=== PATIENT | female | born 1955 | race Caucasian/White ===

== ENCOUNTER → 2018-04-03 03:06 | Outpatient (CLI) | payer BC, SELFPAY ==
[2018-04-03 08:27] LABS: Anion Gap 5.9 mmol/L (3-11); BUN 14 mg/dL (7-18); CO2 29.1 mmol/L (21.0-32.0); CREATININE 0.83 mg/dL (0.55-1.02); Calcium 8.8 mg/dL (8.5-10.1); Chloride 106 mmol/L (98-107); Glucose 103 mg/dL (70-100); Potassium 4.1 mmol/L (3.5-5.1); Sodium 141 mmol/L (136-145); TSH 2.33 uIU/mL (0.358-3.74)
[2018-04-06 12:04] LABS: HBs Antibody, Quant 301.3 mIU/mL; Hepatitis B Surface Ab Positive
== END ==
PROVIDERS: PCP Family Medicine; Visit Provider Family Medicine
DX: R73.01 Impaired fasting glucose (principal); R53.83 Other fatigue; Z28.3 Underimmunization status
CPT/HCPCS: 36415; 80048; 86706; 84443

== ENCOUNTER 2018-12-18 08:49 | Outpatient (CLI) | payer BC, SELFPAY ==
[2018-12-18 10:17] LABS: Anion Gap 8.5 mmol/L (3-11); BUN 22 mg/dL (7-18); CO2 28.5 mmol/L (21.0-32.0); CREATININE 0.74 mg/dL (0.55-1.02); Calcium 8.9 mg/dL (8.5-10.1); Chloride 105 mmol/L (98-107); Glucose 106 mg/dL (70-100); Potassium 4.5 mmol/L (3.5-5.1); Sodium 142 mmol/L (136-145)
== END 2018-12-18 09:09 ==
PROVIDERS: PCP Family Medicine; Visit Provider Family Medicine
DX: R73.9 Hyperglycemia, unspecified (principal)
CPT/HCPCS: 36415; 80048

== ENCOUNTER → 2019-04-23 11:18 | Outpatient (CLI) | payer BC, SELFPAY ==
--- NOTE | 2019-04-23 11:33 | DI.RAD_ITS ---
SYMPTOM/DIAGNOSIS: RT HEEL PAIN, CONCERNED ABOUT SPUR. PLANTAR FASCIITIS RT FOOT , PLANTAR FASCIAL FIBROMATOSIS M72.2 RIGHT FOOT: No plantar calcaneal spur is seen. There is no abnormal calcification in the plantar fascia. No bony erosions are seen. There are minimal degenerative changes of the first MTP joint. There is a small accessory navicular. An ossicle is seen posterior to the talus. IMPRESSION: No evidence of heel spur. Minimal first MTP joint degenerative changes.
== END ==
PROVIDERS: PCP Family Medicine; Visit Provider Nurse Practitioner Family
DX: M72.2 Plantar fascial fibromatosis (principal); M79.671 Pain in right foot; M19.071 Primary osteoarthritis, right ankle and foot
CPT/HCPCS: 73630

== ENCOUNTER 2019-10-19 00:27 | Outpatient (CLI) | payer BC, SELFPAY ==
--- NOTE | 2019-10-19 06:15 | DI.US_ITS ---
EXAM: US SOFT TISSUE HEAD OR NECK CLINICAL HISTORY: posterior neck, soft tissue lump, more tender recently, R22.9. TECHNIQUE: Ultrasound was performed using standard protocol. COMPARISON: No exams were available for comparison FINDINGS: Sonographic assessment utilizing grayscale and color Doppler imaging was performed and targeted to th e area of clinical concern. Two ovoid hypoechoic sonographically benign appearing lymph nodes are seen the posterior lateral left neck. These correspond to the area of palpable concern. They each measure 0.7 cm in maximum diamet er. No suspicious cystic or solid masses are seen sonographically. IMPRESSION: There are 2 benign-appearing lymph nodes seen in the posterior lateral left neck. No suspicious cysti c or solid masses are seen sonographically. DATA REPOSITORY:
== END 2019-10-19 00:47 ==
PROVIDERS: PCP Family Medicine
DX: R22.1 Localized swelling, mass and lump, neck (principal); R59.0 Localized enlarged lymph nodes
CPT/HCPCS: 76536

== ENCOUNTER 2020-02-11 08:07 | Outpatient (CLI) | payer BC, SELFPAY ==
[2020-02-16 21:58] LABS: SARS-CoV-2 RNA Undetected (Undetected); SARS-CoV-2 Specimen Source Nasopharynx
== END 2020-02-11 08:27 ==
DX: R50.9 Fever, unspecified (principal)
CPT/HCPCS: U0003

== ENCOUNTER 2020-04-10 07:49 | Outpatient (CLI) | payer BC, SELFPAY ==
--- NOTE | 2020-04-10 11:08 | DI.RAD_ITS ---
EXAM: XR KNEE LT 3V AP,LAT,JANEL CLINICAL HISTORY: left knee pain, post. lateral - post fall 5 weeks, M25.562 PAIN LT KNEE. TECHNIQUE: 2D digital imaging was performed. COMPARISON: CR CHEST 2 VIEWS PA,LAT from 09/13/2013 FINDINGS: BONES: No acute fracture is present. No bony destructive lesion is seen. JOINTS: The knee is normally aligned. No joint effusion is seen. SOFT TISSUE: Normal. IMPRESSION: Normal radiographs of the left knee. DATA REPOSITORY: RADIATION DOSE DELIVERED:
== END 2020-04-10 08:09 ==
DX: M25.562 Pain in left knee (principal)
CPT/HCPCS: 73562

== ENCOUNTER 2020-05-17 00:53 | Outpatient (CLI) | payer MEDICARE, BC, SELFPAY ==
--- NOTE | 2020-05-17 07:30 | DI.MRI_ITS ---
EXAM: MR LOWER JOINT LT WO CLINICAL HISTORY: L KNEE PAIN,INTERNAL DERANGEMENT,M23.92. TECHNIQUE: Multiplanar multisequence MRI was performed. COMPARISON: No exams were available for comparison FINDINGS: MR examination knee was according to usual protocol. Bones: There is mildly increased signal at the ACL attachment intercondylar eminence of the tibia wit h associated abnormal signal ACL attachment, possible minimal cortical disruption at this site sugges ting a partially avulse to ACL attachment. Extensor mechanism patellofemoral joint: Normal appearance of quadriceps and patellar tendons. Huong l signal in suprapatellar and infrapatellar fat pads. Patellar and trochlear articular cartilage demetiro ears fairly well maintained. No retinacular tear. Medial tibiofemoral joint: Fairly symmetrical thinning of femoral and tibial articular cartilage. Ap parent nondisplaced inferior surfacing body to posterior horn meniscal tear, this is not ideally visu alized. No significant medial collateral ligament injury. Lateral tibiofemoral joint: Abnormal signal in body and anterior horn lateral meniscus with surface i rregularity of superior margin of the meniscus in mid body is likely to represent nondisplaced tear. Mild symmetrical articular cartilage thinning of the femoral and tibial articular cartilage. No sig nificant lateral collateral ligament injury or posterolateral corner injury. Cruciate ligaments: Intact posterior cruciate ligament. Probable attachment partial-thickness tear o f tibial attachment of ACL. This involves the posterior most aspect of the tibial attachment. There are a couple of small cysts associated with the ACL attachment on the femur, no definite ACL tear id entified at this site. Additional: There is an apparent partial tear of the medial gastrocnemius attachment on the femur wit h associated free fluid. No significant retraction seen. Intact lateral gastrocnemius its attachmen t noted. IMPRESSION: Probable nondisplaced lateral and medial meniscal tears as described above. Symmetrical articular ca rtilage thinning of medial and lateral tibiofemoral joints. Probable partial-thickness attachment tear of ACL at the intercondylar eminence of the tibia, no speedy s retraction. DATA REPOSITORY:
== END 2020-05-17 01:13 ==
PROVIDERS: Visit Provider Student in an Organized Health Care Education/Training Program
DX: M23.8X2 Other internal derangements of left knee (principal)
CPT/HCPCS: 73721

== ENCOUNTER → 2020-05-29 09:53 | Outpatient (BNVA) | payer MEDICARE, BC, SELFPAY | PROVIDERS: Visit Provider Student in an Organized Health Care Education/Training Program | DX: M25.562 Pain in left knee (principal); S83.27 Complex tear of lateral meniscus, current injury; S83.232S Complex tear of medial meniscus, current injury, left knee, sequela | CPT/HCPCS: 99213 ==

== ENCOUNTER 2020-06-30 02:08 | Outpatient (CLI) | payer MEDICARE, BC, SELFPAY ==
[2020-06-30 07:44] LABS: Abs Immature Grans 0.01 10^3/uL (0.0-0.06); Absolute Basophil Count 0.06 10^3/uL (0.0-0.2); Absolute Eosinophil Count 0.34 10^3/uL (0.0-0.7); Absolute Lymphocyte Count 1.67 10^3/uL (1.2-3.4); Absolute Monocyte Count 0.46 10^3/uL (0.1-0.8); Absolute Neutrophil Count 2.96 10^3/uL (1.2-6.7); Basophils % 1.1; Eosinophils % 6.2; HCT 40.8 % (36.0-46.0); HGB 13.2 g/dL (11.2-15.7); Immature Grans % 0.2; Lymphocytes % 30.4; MCH 28.4 pg (27.0-33.0); MCHC 32.4 % (32.0-36.0); MCV 87.7 fL (80-95); MPV 10.1 fL (8.0-11.0); Monocytes % 8.4; Neutrophils % 53.7; Nucleated RBC 0 %; Platelet Count 381 10^3/uL (130-400); RBC 4.65 10^6/uL (3.93-5.22); RDW 14.8 % (11.7-14.6); RDW-SD 47.4 fL
[2020-06-30 08:25] LABS: Hemoglobin A1C 5.7 % (<5.7)
[2020-06-30 09:56] LABS: ALT 24 U/L (14-59); AST 23 U/L (15-37); Albumin 3.7 g/dL (3.4-5.0); Alkaline Phosphatase 62 U/L (46-116); Anion Gap 8.7 mmol/L (3-11); BUN 19 mg/dL (7-18); Bilirubin, Total 0.5 mg/dL (0.2-1.0); CO2 28.3 mmol/L (21.0-32.0); Calcium 8.6 mg/dL (8.5-10.1); Calculated LDL 101 mg/dL (<100); Chloride 105 mmol/L (98-107); Cholesterol 199 mg/dL (<200); Glucose 106 mg/dL (74-106); HDL Cholesterol 88 mg/dL (40-60); Potassium 4.5 mmol/L (3.5-5.1); Sodium 142 mmol/L (136-145); Total Protein 6.7 g/dL (6.4-8.2); Triglyceride 54 mg/dL (<150)
== END 2020-06-30 02:28 ==
DX: M54.2 Cervicalgia (principal); Z00.00 Encounter for general adult medical examination without abnormal findings; R73.01 Impaired fasting glucose
CPT/HCPCS: 36415; 80053; 80061; 83036; 85025